=== PATIENT | male | born 2005 | race Two or more races ===

== ENCOUNTER 2025-03-19 13:57 | Emergency (ER) | payer MEDICAID, SELFPAY ==
[2025-03-19 14:16] VITALS: BP 135/87; PULSE 89; RESP 18; TEMP 36.8; O2SAT 95; BMI 44.9
--- NOTE | 2025-03-19 14:24 | XR_ITS ---
X-RAY LUMBAR SPINE 3 VIEWS Exam date and time: 03/19/2025 at 2:29 p.m. CLINICAL INDICATION: Lower back pain while standing COMPARISON: None. FINDINGS: 5 non rib-bearing lumbar-type vertebral bodies noted. No evidence for vertebral compression fractures, listhesis, or pars defects. No appreciable significant disc space narrowing. No aggressive bone lesions. Grossly unremarkable facet joints. Unremarkable sacroiliac joints. The paraspinous soft tissues are radiographically unremarkable. IMPRESSION: Negative lumbar spine radiographs for acute fracture or listhesis.
--- NOTE | 2025-03-19 15:11 | EDNOTE_ITS ---
<Statement entered by Shelbi Faulkner MD - 03/20/25 09:34> As co-signing physician, I was present and available for consult prn. I concur with the plan and care as documented by the midlevel provider. ED Back Injury Pain RME/HPI General Chief Complaint: Back Pain/Injury Stated Complaint: INTENSE LOWER BACK PAIN 12/23 Time Seen by Provider: 03/19/25 14:23 Arrival date/time: 03/19/25 13:57 19-year-old male presents to the Emergency Department today complains of lower back pain patient reports he bent down and when he stood up he felt pain in his lower back patient reports no direct trauma patient reports no saddle anesthesia no loss of bowel or bladder no significant medical problems Limitations: no limitations Related Data Previous Rx's ?Medication ?Instructions ?Recorded ibuprofen 600 mg tablet 600 mg PO Q6H PRN pain #20 t abs 01/25/19 cyclobenzaprine 10 mg tablet 10 mg PO TID PRN muscle s pasm 10 03/19/25 days #30 tab-caps ibuprofen 800 mg tablet 800 mg PO TID PRN pain #30 t abs 03/19/25 Allergies Allergy/AdvReac Type Severity Reaction Status Date / Time No Known Allergies Allergy Verified 03/19/25 14:00 Review of Systems Review of Systems Systems Reviewed: All systems reviewed, normal except as documented Constitutional Constitutional: Reports system reviewed and no additional complaints, except as documented, Denies fever(s) and Denies headache(s) Eyes Eyes: Reports system reviewed and no additional complaints, except as documented and Denies blurry vision ENT Ears, Nose, Mouth, and Throat: Reports system reviewed and no additional complaints, except as documented, Denies headache(s), Denies nasal congestion and Denies nasal discharge Cardiovascular Cardiovascular: Reports system reviewed and no additional complaints, except as documented, Denies chest pain and Denies dyspnea Respiratory Respiratory: Reports system reviewed and no additional complaints, except as documented, Denies chest congestion, Denies cough and Denies dyspnea Gastrointestinal Gastrointestinal: Reports system reviewed and no additional complaints, except as documented and Denies abdominal pain Musculoskeletal Musculoskeletal: Reports system reviewed and no additional complaints, except as documented and Reports back pain Integumentary/Breasts Skin/Breast: Reports system reviewed and no additional complaints, except as documented and Denies rash Neurologic Neurologic: Reports system reviewed and no additional complaints, except as documented, Reports as per HPI and Denies headache(s) Past Medical History Past Medical History CARDIAC: Negative Congestive Heart Failure RESPIRATORY: Negative Chronic Obstructive Pulmonary Disease (COPD) GENITOURINARY: Negative Renal Disease ENDOCRINE: Negative Diabetes Mellitus Type 1 or Diabetes Mellitus Type 2 Social History SMOKING STATUS: Never smoker ED Exam General Limitations: Present no limitations General appearance: Present alert and in no apparent distress Head Head exam: Present atraumatic, normocephalic and normal inspection Eye Eye exam: Present normal appearance, PERRL and EOMI; Absent conjunctival injection ENT ENT exam: Present normal exam, normal oropharynx and mucous membranes moist Neck Neck exam: Present normal inspection, full ROM and trachea midline Chest Chest inspection: Present normal inspection and symmetric chest wall rise Respiratory Respiratory exam: Present normal lung sounds bilaterally; Absent respiratory distress Cardiovascular Cardiovascular exam: Present regular rate, normal rhythm and normal heart sounds Abdominal Exam Abdominal exam: Present soft and normal bowel sounds; Absent distention, tenderness, guarding, rebound or rigidity Extremities Exam Extremities exam: Present normal inspection and full ROM Back Exam Back exam: Present normal inspection, full ROM, tenderness, muscle spasm and paraspinal tenderness; Absent CVA tenderness (R) or CVA tenderness (L) Neurological Exam Neurological exam: Present alert, oriented X3 and CN II-XII intact Psychiatric Psychiatric exam: Present normal affect and normal mood Skin Skin exam: Present warm, dry, intact and normal color Course Quality Measures none Orders Category Date Time Status XR lumbar spine 2-3V Stat Exams 03/19/25 14:24 Completed Diazepam [Valium] Med 03/19/25 14:24 Discontinued 10 mg PO X1 ONE Ketorolac Inj [Toradol Inj] Med 03/19/25 14:24 Discontinued 30 mg IM X1 ONE Vital Signs Vital signs: Vital Signs Temperature 98.3 F 03/19/25 14:16 Pulse Rate 89 03/19/25 14:16 Respiratory Rate 18 03/19/25 14:16 Blood Pressure 135/87 H 03/19/25 14:16 Pulse Oximetry (%) 95 03/19/25 14:16 Oxygen Delivery Method Room Air 03/19/25 14:16 O2 saturation 95% room air within normal Back Pain / Injury MDM Narrative MDM Narrative:: 19-year-old male presents to the Emergency Department today complains of lower back pain patient reports he bent down and when he stood up he felt pain in his lower back patient reports no direct trauma patient reports no saddle anesthesia no loss of bowel or bladder no significant medical problems On exam patient well-appearing patient does not appear ill or toxic no acute distress Imaging obtained no acute emergent findings noted Patient given pain medication muscle relaxers Patient discharged home in no distress to follow-up with primary care doctor in the next 24 to 48 hours and for any worsening symptoms to return to the ER immediately Patient data External records reviewed:: [facility] previous records Clinical information provided by:: patient Social determinants that could affect healthcare access:: none Patient has the following chronic illnesses:: None How is presenting disease/condition affected by chronic disease/condition?: no chronic disease Evaluation data The following diagnostics were reviewed and interpreted by me:: radiology exam(s) Lab and/or radiology exams considered but not ordered:: Radiology obtained Interpretation Summary: Reviewed by me Medications / Prescriptions Medications or Prescriptions considered but not ordered:: Given Medication administrations:: Medication Administration History Discontinued Medications Diazepam (Diazepam 5 Mg Tablet) 10 mg PO X1 ONE Stop: 03/19/25 14:25 Last Admin: 03/19/25 15:21 Dose: 10 mg Documented By: Ketorolac Tromethamine (Ketorolac Inj 30 Mg/Ml Vial) 30 mg IM X1 ONE Stop: 03/19/25 14:25 Last Admin: 03/19/25 15:21 Dose: 30 mg Documented By: Given Consultations Consultation(s) initiated? (list below): No Diagnosis Differential diagnosis back pain/injury: lumbar radiculopathy, sciatica and strain of lumbar region Most likely diagnosis given after review of the tests above:: Back pain Admission Indicated Admission indicated?: not indicated Admission Request Was there a request for admission?: No Disposition Plan Disposition Plan: Discharge Discharge Attestation Discharge Attestation: The patient and all family members were given an opportunity to ask questions and understood the discharge instructions. Discharge instructions specifically effects, indications for sooner follow up or return to the emergency department, and the expected course of current diagnosis. Patient condition: Stable Discharge Plan Plan Patient Disposition: HOME (Self Care) Discharge Disposition comment: Stable Prescriptions/Referrals Prescriptions/Med Rec: New cyclobenzaprine 10 mg tablet 10 mg PO TID PRN (Reason: muscle spasm) 10 Days Qty: 30 0RF ibuprofen 800 mg tablet 800 mg PO TID PRN (Reason: pain) Qty: 30 0RF No Action ibuprofen 600 mg tablet 600 mg PO Q6H PRN (Reason: pain) Qty: 20 0RF Problem List Clinical Impression: Lumbar radiculopathy Patient/Caregiver Discharge Instructions Education Materials: Back Safety: Standing Additional Instructions: Please follow up with your primary care doctor in the next 24-48hrs for any worsening symptoms return here immediately Print Language: Syriac Stand Alone Forms: [employer] Award Info., Work/School Release, Patient Portal Info Letter PA/TENTER FRAME OPERATOR Supervising Physician PA/TENTER FRAME OPERATOR Supervising Physician: Dr. faulkner
[2025-03-19] MEDS: KETOROLAC INJ 30 MG/ML VIAL IM (15:21)
[2025-03-19] MEDS: DIAZEPAM 5 MG TABLET 10 MG PO (15:21)
== END 2025-03-19 15:41 | disposition home or self-care (01) ==
LOC: SERX 15:36
PROVIDERS: Emergency Provider Emergency Medicine; PCP Physician Assistant
DX: M54.16 Radiculopathy, lumbar region (principal)
CPT/HCPCS: 72100; 96372; 99283; J1885; A9270